=== PATIENT | female | born 1985 | race Two or more races ===

== ENCOUNTER 2021-05-29 10:08 | Day surgery (SDC) | payer OTHER | END 2021-05-29 15:20 | disposition home or self-care (01) | LOC: CIR.AMB 10:08 | PROVIDERS: ATTEND Obstetrics & Gynecology | DX: O02.1 Missed abortion (principal); Z20.822 Contact with and (suspected) exposure to COVID-19 ==

== ENCOUNTER 2022-06-02 09:33 | Outpatient (CLI) | payer OTHER | END 2022-06-02 12:35 | disposition home or self-care (01) | LOC: PRENATAL 09:33 | PROVIDERS: ATTEND Obstetrics & Gynecology Maternal & Fetal Medicine | DX: O26.849 Uterine size-date discrepancy, unspecified trimester (principal); O09.529 Supervision of elderly multigravida, unspecified trimester; O36.1999 Maternal care for other isoimmunization, unspecified trimester, other fetus; O26.859 Spotting complicating pregnancy, unspecified trimester; Z3A.21 21 weeks gestation of pregnancy ==

== ENCOUNTER 2022-09-19 17:31 | Inpatient (IN) | payer OTHER ==
[~2022-09-19] VITALS: Ht 157.5 cm; Wt 68.9 kg
== END 2022-09-22 14:57 | disposition home or self-care (01) | DRG 807 ==
LOC: OB/GYN 17:31 → LDR 17:31 → OB/GYN 09-20 07:16
PROVIDERS: ADMIT Obstetrics & Gynecology Maternal & Fetal Medicine; ATTEND Obstetrics & Gynecology Maternal & Fetal Medicine
PROC: 4A1HXCZ Monitoring of Products of Conception, Cardiac Rate, External Approach (ICD-10-PCS; 2022-09-19)
PROC: 10E0XZZ Delivery of Products of Conception, External Approach (ICD-10-PCS; principal; 2022-09-20)
PROC: 0KQM0ZZ Repair Perineum Muscle, Open Approach (ICD-10-PCS; 2022-09-20)
DX: O70.1 Second degree perineal laceration during delivery (principal); Z37.0 Single live birth; Z3A.36 36 weeks gestation of pregnancy; Z20.822 Contact with and (suspected) exposure to COVID-19